=== PATIENT | male | born 1955 | race Caucasian/White ===

== ENCOUNTER → 2016-11-01 | Outpatient (CLI) | payer BC ==
[~2016-11-01] MED LIST: ASCO500T16 PO; ATOR10TA88 PO; MULT-164 PO; ZINC GLUCONATE PO
[2016-11-01 14:35] LABS: COMPLETE YES; EOS % 0.4 %; HEMATOCRIT 43.4 % (42-52); IG% 0.1 %; LYMPH % 22.1 %; MEAN CELL VOLUME 93.7 fL (80-100); MEAN CORPUSCULAR HEMOGLOBIN 32.6 pg (25-34); MEAN CORPUSCULAR HGB CONC 34.8 g/dl (32-36); MEAN PLATELET VOLUME 10.4 fL (7.4-10.4); MONO % 6.3 %; NEUT % 71.1 %; PLATELET COUNT 288 K/uL (130-400); RED BLOOD COUNT 4.63 M/uL (4.7-6.1); WHITE BLOOD COUNT 6.78 K/uL (4.8-10.8)
[2016-11-01 15:15] LABS: ALT/SGPT 40 U/L (12-78); AST/SGOT 25 U/L (15-37); BLOOD UREA NITROGEN 17 mg/dl (7-18); BUN/CREATININE RATIO 15.6 (10-20); CALCIUM 8.9 mg/dl (8.5-10.1); CARBON DIOXIDE 27 mmol/L (21-32); CHLORIDE 107 mmol/L (98-107); GLUCOSE 101 mg/dl (70-99); POTASSIUM 3.7 mmol/L (3.5-5.1); SODIUM 140 mmol/L (136-145)
[2016-11-01 15:26] LABS: ALB/GLOB RATIO 1.2 (0.9-2); ALKALINE PHOSPHATASE 71 U/L (45-117); THYROID STIMULATING HORMONE 0.501 uIu/ml (0.300-4.500)
== END | disposition home or self-care (01) ==
LOC: C.LAB1850 13:32
PROVIDERS: ATTEND Internal Medicine
DX: N20.0 Calculus of kidney (principal); N40.1 Benign prostatic hyperplasia with lower urinary tract symptoms

== ENCOUNTER → 2016-11-06 | Outpatient (CLI) | payer BC ==
[~2016-11-06] MED LIST changes: +GADAVIST IV PRN
--- NOTE | 2016-11-06 10:56 | DIAGNOSTIC IMAGING REPORT ---
BRAIN COMBO CLINICAL HISTORY: 3RD NERVE PALSY, R UPPER EYELID DROOPING neuropathy COMPARISON STUDY: 12/10/2005 TECHNIQUE: Utilizing a 1.5 Michelle magnet and dedicated coil, multiplanar, multiecho imaging of the brain was performed pre and postcontrast administration. IV administration of 7.5 mL of Gadavist contrast was uneventful. FINDINGS: No major change from the prior study. Postcraniotomy changes at the right skull base are again noted. The increased signal of the right petrous ridge is again stable and is presumably postoperative. There is no significant postcontrast enhancement. Diffusion-weighted images show no evidence for acute ischemic change. There are components of mild chronic small vessel change. There is a small focus of chronic small vessel change in the right paraventricular region which appears to been interval change compared to the prior study. This does not, however appear to be an acute finding. IMPRESSION: 1. Stable post craniotomy changes. 2. Minimal chronic small vessel change is slightly increased in the right paraventricular region. This appears to be a nonacute finding. 3. No abnormal postcontrast enhancement 4. Stable exam with no change from the prior study. The above report was generated using voice recognition software. It may contain grammatical, syntax or spelling errors. Electronically signed by: Eric Pollack M.D. 11/06/2016 10:55 AM Dictated Date/Time: 11/06/2016 10:45 AM
== END | disposition home or self-care (01) ==
LOC: C.MRIBC 09:44
PROVIDERS: ATTEND Internal Medicine
DX: H49.00 Third [oculomotor] nerve palsy, unspecified eye (principal); I10 Essential (primary) hypertension

== ENCOUNTER → 2016-11-07 | Outpatient (CLI) | payer BC ==
[~2016-11-07] MED LIST changes: -GADAVIST IV PRN
[2016-11-07 14:29] LABS: LYME DISEASE AB IGG NEG (NEG)
[2016-11-07 14:32] LABS: LYME DISEASE AB IGM NEG (NEG)
[2016-11-15 02:16] LABS: ACETYLCHOLINE RECEP MODULATING 5; ACETYLCHOLINE RECEPT BLOCKING <15 % inhibit (<15); RECEPTOR BINDING AB <0.30 nmol/L (<=0.30)
== END | disposition home or self-care (01) ==
LOC: C.LABBC 09:27
PROVIDERS: ATTEND Psychiatry & Neurology Neurology
DX: H49.00 Third [oculomotor] nerve palsy, unspecified eye (principal)

== ENCOUNTER → 2016-11-14 | Outpatient (CLI) | payer BC ==
--- NOTE | 2016-11-14 09:45 | DIAGNOSTIC IMAGING REPORT ---
Brain MRA HISTORY: 3RD NERVE PALSY TECHNIQUE: 3-D [id number] MRA of the brain was performed without contrast. COMPARISON STUDY: Brain MRI 11/06/2016. FINDINGS: Visualized intracranial internal carotid arteries, distal vertebral arteries, and basilar artery are widely patent. There is no significant stenosis, occlusion, or aneurysm seen within the bilateral ACAs, MCAs, or life advisor. Right-sided post craniotomy changes are again noted IMPRESSION: No significant stenosis, occlusion, or aneurysm within the [place]. Electronically signed by: Jewel Pedersen M.D. 11/14/2016 9:43 AM Dictated Date/Time: 11/14/2016 8:31 AM
== END | disposition home or self-care (01) ==
LOC: C.MRIBC 07:47
PROVIDERS: ATTEND Psychiatry & Neurology Neurology
DX: H49.00 Third [oculomotor] nerve palsy, unspecified eye (principal)

== ENCOUNTER → 2016-11-19 | Outpatient (CLI) | payer BC ==
[2016-11-19 11:58] LABS: CHOLESTEROL/HDL RATIO 2.7
== END | disposition home or self-care (01) ==
LOC: C.LABBC 08:01
PROVIDERS: ATTEND Internal Medicine
DX: E78.5 Hyperlipidemia, unspecified (principal)